=== PATIENT | female | born 1945 | race Two or more races ===

== ENCOUNTER 2018-12-23 06:54 | Day surgery (SDC) | payer OTHER ==
[~2018-12-23 06:54] MED LIST: ASPIRIN81 M1 PO; CILOSTAZOL50 MG PO; CRESTOR40 MG PO; FOSINOPRIL-HCT1 EAC1 PO; JARDIANCE25 MG PO; MELOXICAM15 MG PO; REPATHA SU140 MG/1 M; SYNTHROID50 MCG PO
[2018-12-23] MEDS ORDERED: PERCOCET 5-3251 EACH PO (11:24)
== END 2018-12-23 14:50 | disposition home or self-care (01) ==
LOC: CIR.AMB 06:54
DX: D35.1 Benign neoplasm of parathyroid gland (principal)